=== PATIENT | female | born 1985 | race Two or more races ===

== ENCOUNTER 2016-04-14 21:34 | Emergency (ER) | payer SELFPAY ==
[~2016-04-14] VITALS: Ht 160 cm; Wt 81.6 kg
[~2016-04-14 21:34] MED LIST: ACETAMINOPHEN-1 EAC1 ORAL; AMOXICILLIN500 MG PO; AUGMENTIN 875-1 EAC1 ORAL; AZITHROMYCIN250 MG ORAL; CEPHALEXIN500 MG ORAL; CIPRO500 MG PO; CIPROFLOXACIN500 M2 ORAL; COLACE100 MG ORAL; CORTISPORIN EAR10 ML OTIC; IBUPROFEN600 MG ORAL; IBUPROFEN600 MG PO; IBUPROFEN800 MG ORAL; MACROBID100 MG ORAL; MOTRIN600 MG PO; NAPROXEN375 MG ORAL; NAPROXEN500 M2 ORAL; NKM; NORCO 5-325 TA1 EACH ORAL; NORCO 5-325 TA1 EACH PO; NORCO 5/3251 TAB GT; NORCO 5/3251 TAB ORAL; NORVASC5 MG PO; ONDANSETRON ODT4 MG ORAL; PEPCID40 MG PO; PERCOCET 5-3251 EACH ORAL; PHENAZOPYRIDIN100 MG ORAL; PHENERGAN25 M1 ORAL; PRILOSEC40 MG ORAL; PROMETHAZINE-D118 ML ORAL; PROTONIX40 MG ORAL; PYRIDIUM200 M1 ORAL; TRAMADOL HCL50 MG ORAL; TYLENOL EXTRA500 MG ORAL; ZANTAC150 MG ORAL; ZOFRAN4 M1 ORAL
[2016-04-14 21:43] VITALS: BP 163/99
--- NOTE | 2016-04-14 21:53 | Emergency Room Report ---
History of Present Illness General Chief Complaint: Chest Pain Source: Patient Present Illness HPI Is a 30-year-old female with no significant past medical history. She presents with left upper quadrant abdominal pain/chest pain. Sharp in nature. Onset 2 hours ago. No fever chills. has nausea but no vomiting. Also with headache. Pain is 10 out of 10. No radiation. No diaphoresis. No shortness of breath. No exertional component. His been here for abdominal pain before but no chest pain. Allergies: Coded Allergies: No Known Allergies (Unverified , 12/22/11) Patient History Past Medical History: see triage record, old chart reviewed Past Surgical History: none Pertinent Family History: none Social History: Denies: smoking Now: No Immunizations: other Reviewed Nursing Documentation: PMH: Agreed, PSxH: Agreed Nursing Documentation-PMH Hx Cardiac Problems: No Hx Hypertension: Yes Hx Pacemaker: No Hx Asthma: No Hx COPD: No Hx Diabetes: No Hx Cancer: No Hx Gastrointestinal Problems: No Hx Dialysis: No Hx Neurological Problems: No Hx Cerebrovascular Accident: No Hx Seizures: No Review of Systems Eye: Denies: blurred vision, eye pain ENT: Denies: ear pain, nose congestion, throat swelling Respiratory: Denies: cough, shortness of breath Cardiovascular: Reports: chest pain, Denies: palpitations Gastrointestinal: Reports: abdominal pain, Denies: diarrhea, nausea, vomiting Musculoskeletal: Denies: back pain, joint pain Skin: Denies: rash Neurological: Denies: headache, numbness Endocrine: Denies: increased thirst, increased urine Hematologic/Lymphatic: Denies: easy bruising All Other Systems: negative except mentioned in HPI Physical Exam vitals normal Sp02 EP Interpretation: reviewed, normal General Appearance: well appearing, alert, mild distress - From pain Head: normocephalic, atraumatic Eyes: bilateral eye EOMI, bilateral eye PERRL ENT: hearing grossly normal, normal pharynx Neck: full range of motion, supple, no meningismus Respiratory: chest non-tender, lungs clear, normal breath sounds Cardiovascular #1: regular rate, rhythm, no murmur Gastrointestinal: normal bowel sounds, no mass, no organomegaly, no bruit, non- distended, tenderness - Left upper quadrant Musculoskeletal: back normal, gait/station normal, normal range of motion Neurologic: alert, oriented x3 Psychiatric: mood/affect normal Skin: warm/dry Medical Decision Making Diagnostic Impression: Primary Impression: Chest pain Qualified Codes: R07.9 - Chest pain, unspecified Additional Impressions: Headache Qualified Codes: G44.209 - Tension-type headache, unspecified, not intractable Obesity (BMI 30.0-34.9) ER Course Patient present with atypical chest pain and headache. She's been here multiple time for different pain complaint. No evidence of ACS, PE, dissection to name a few. We'll discharge home. She felt better now. Lab Results Impression labs normal EKG Diagnostic Results Rate: normal Rhythm: NSR ST Segments: no acute changes Rhythm Strip Diag. Results EP Interpretation: yes Rate: 80 Rhythm: NSR, no PVC's, no ectopy Status: improved Disposition: HOME, SELF-CARE Condition: Stable Scripts Naproxen* (NAPROSYN*) 500 Mg Tablet 500 MG ORAL TWICE A DAY, #30 TAB Prov: ISRRAEL JACOME M.D. 04/14/16 Patient Instructions: Nonspecific Chest Pain Additional Instructions: Followup with your DrAaron in 3-5 days. Return if symptom worsen. ISRRAEL JACOME M.D. Apr 14, 2016 21:53
[2016-04-14] MEDS ORDERED: HYDROmorphone 1mg/ml Carpuject IVP ONE (22:00)
[2016-04-14 22:18] LABS: BASOPHILS % (AUTO) 1.1 % (0.0-2.0); EOSINOPHILS % (AUTO) 0.3 % (0.0-3.0); LYMPHOCYTES % (AUTO) 38.8 % (20.0-45.0); MEAN CORPUSCULAR HEMOGLOBIN 29.7 PG (27.0-31.0); MEAN CORPUSCULAR HGB CONC 32.8 G/DL (32.0-36.0); MEAN CORPUSCULAR VOLUME 91 FL (80-99); MEAN PLATELET VOLUME 6.1 FL (6.5-10.1); MONOCYTES % (AUTO) 8.4 % (1.0-10.0); NEUTROPHILS % (AUTO) 51.3 % (45.0-75.0); PLATELET COUNT 328 K/UL (150-450); RED BLOOD COUNT 4.55 M/UL (4.20-5.40); RED CELL DISTRIBUTION WIDTH 11.6 % (11.6-14.8); WHITE BLOOD COUNT 9.3 K/UL (4.8-10.8)
[2016-04-14 22:34] LABS: TROPONIN I < 0.30 ng/mL (<=0.30)
[2016-04-14 22:37] LABS: ALANINE AMINOTRANSFERASE 18 U/L (3-33); ALBUMIN/GLOBULIN RATIO 1.3 (1.0-2.7); ANION GAP 13 (5-15); ASPARTATE AMINO TRANSFERASE 17 U/L (5-40); CALCIUM 9.3 mg/dL (8.6-10.2); CARBON DIOXIDE 26 mEQ/L (20-30); CHLORIDE 99 mEQ/L (98-107); CREATININE 0.7 mg/dL (0.5-0.9); GLOMERULAR FILTRATION RATE > 60 mL/min (>60); HEMOLYSIS 9; LIPASE 26 U/L (< 60); POTASSIUM 3.5 mEQ/L (3.4-4.9); SODIUM 138 mEQ/L (135-145)
[2016-04-14] MEDS ORDERED: NAPROSYN500 M1 ORAL (23:12)
[2016-04-14 23:15] LABS: APPEARANCE,URINE CLEAR; KETONES,URINE NEGATIVE (NEGATIVE); LEUKOCYTE ESTERASE ,URINE 3+ (NEGATIVE); NITRITE,URINE NEGATIVE (NEGATIVE); PH,URINE 6 (4.5-8.0); PROTEIN,URINE 1+ (NEGATIVE); UROBILINOGEN,URINE NORMAL MG/DL (0.0-1.0)
[2016-04-14 23:21] VITALS: BP 155/95
[2016-04-14 23:25] LABS: RBC,URINE 0-2 /HPF (0 - 2); SQUAMOUS EPITHELIAL CELL,UR FEW /LPF (NONE/OCC)
[2016-04-14 23:26] LABS: BACTERIA,URINE FEW /HPF
--- NOTE | 2016-04-17 14:55 | Cardiology Report ---
APPROVED REPORT EKG Measurement Heart [id number] Normal sinus rhythm Normal ECG
== END 2016-04-14 23:21 | disposition home or self-care (01) ==
LOC: EMR 22:15
DX: R07.9 Chest pain, unspecified (principal); G44.209 Tension-type headache, unspecified, not intractable; E66.9 Obesity, unspecified; Z68.31 Body mass index [BMI] 31.0-31.9, adult; I10 Essential (primary) hypertension
CPT/HCPCS: 36415; 80053; 81003; 81025; 83690; 84484; 85025; 93005; 96361; 96374; 96375; 99284; J1170; J2405

== ENCOUNTER 2016-10-25 23:46 | Emergency (ER) | payer SELFPAY ==
[~2016-10-25] VITALS: Ht 157.5 cm; Wt 78.5 kg
[~2016-10-25 23:46] MED LIST changes: +NAPROSYN500 M1 ORAL
[2016-10-26] MEDS ORDERED: NKM (00:19)
[2016-10-26] MEDS ORDERED: DiphenhydrAMINE 50mg/ml Inj IVP ONE (00:30)
[2016-10-26] MEDS ORDERED: Metoclopramide 10mg/2ml Inj IVP ONE (00:30)
[2016-10-26] MEDS ORDERED: Morphine Sulfate 2mg/ml Inj IVP ONE (00:30)
[2016-10-26 02:45] LABS: KETONES,URINE NEGATIVE (NEGATIVE); LEUKOCYTE ESTERASE ,URINE 2+ (NEGATIVE); NITRITE,URINE NEGATIVE (NEGATIVE); PH,URINE 5 (4.5-8.0); PROTEIN,URINE 1+ (NEGATIVE); UROBILINOGEN,URINE NORMAL MG/DL (0.0-1.0)
[2016-10-26 02:50] LABS: APPEARANCE,URINE SLIGHTLY CLOUDY
[2016-10-26 02:51] LABS: BACTERIA,URINE FEW /HPF; RBC,URINE TNTC /HPF (0 - 2); SQUAMOUS EPITHELIAL CELL,UR MANY /LPF (NONE/OCC)
[2016-10-26 02:55] LABS: BASOPHILS % (AUTO) 0.8 % (0.0-2.0); EOSINOPHILS % (AUTO) 1.8 % (0.0-3.0); LYMPHOCYTES % (AUTO) 42.4 % (20.0-45.0); MEAN CORPUSCULAR HEMOGLOBIN 30.3 PG (27.0-31.0); MEAN CORPUSCULAR HGB CONC 33.9 G/DL (32.0-36.0); MEAN CORPUSCULAR VOLUME 89 FL (80-99); MEAN PLATELET VOLUME 6.2 FL (6.5-10.1); MONOCYTES % (AUTO) 5.6 % (1.0-10.0); NEUTROPHILS % (AUTO) 49.4 % (45.0-75.0); PLATELET COUNT 291 K/UL (150-450); RED BLOOD COUNT 3.82 M/UL (4.20-5.40); WHITE BLOOD COUNT 8.4 K/UL (4.8-10.8)
[2016-10-26 03:06] VITALS: BP 119/73
[2016-10-26 03:14] LABS: ALANINE AMINOTRANSFERASE 18 U/L (3-33); ALBUMIN/GLOBULIN RATIO 1.3 (1.0-2.7); ANION GAP 16 (5-15); ASPARTATE AMINO TRANSFERASE 18 U/L (5-40); CALCIUM 8.8 mg/dL (8.6-10.2); CARBON DIOXIDE 25 mEQ/L (20-30); CHLORIDE 98 mEQ/L (98-107); CREATININE 0.7 mg/dL (0.5-0.9); GLOMERULAR FILTRATION RATE > 60 mL/min (>60); HEMOLYSIS 9; LIPASE 30 U/L (< 60); POTASSIUM 3.9 mEQ/L (3.4-4.9); SODIUM 139 mEQ/L (135-145); TOTAL PROTEIN 6.8 g/dL (6.6-8.7)
[2016-10-26] MEDS ORDERED: Ketorolac 30mg Inj IV ONE (03:45)
[2016-10-26] MEDS ORDERED: KEFLEX500 MG ORAL (05:26)
[2016-10-26] MEDS ORDERED: FIORICET1 EA ORAL (05:26)
--- NOTE | 2016-10-26 05:33 | Emergency Room Report ---
History of Present Illness General Chief Complaint: Headache Source: Patient Present Illness HPI 31-year-old female presents to ED complaining of headache x2 days. States pain is 9 at 10, throbbing, nonradiating. Notes photophobia and blurry vision. Denies neck stiffness. Denies fevers or chills. Denies nausea or vomiting. No other aggravating relieving factors. Denies any other associated symptoms Allergies: Coded Allergies: No Known Allergies (Unverified , 12/22/11) Patient History Past Medical History: HTN Past Surgical History: none Pertinent Family History: none Social History: Denies: alcohol use, drug use, smoking Last Menstrual Period: August Now: No Immunizations: UTD Reviewed Nursing Documentation: PMH: Agreed, PSxH: Agreed Nursing Documentation-PMH Hx Cardiac Problems: No Hx Hypertension: Yes Hx Pacemaker: No Hx Asthma: No Hx COPD: No Hx Diabetes: No Hx Cancer: No Hx Gastrointestinal Problems: No Hx Dialysis: No Hx Neurological Problems: No Hx Cerebrovascular Accident: No Hx Seizures: No Review of Systems All Other Systems: negative except mentioned in HPI Physical Exam Vital Signs Date Time Temp Pulse Resp B/P Pulse Ox O2 Delivery O2 Flow Rate FiO2 10/26/16 00:13 98.4 79 16 61/99 98 Room Air Sp02 EP Interpretation: reviewed, normal General Appearance: no apparent distress, alert, GCS 15, non-toxic Head: normocephalic, atraumatic Eyes: bilateral eye PERRL, bilateral eye normal inspection ENT: hearing grossly normal, normal pharynx, no angioedema, normal voice Neck: full range of motion, supple, no meningismus, supple/symm/no masses Respiratory: chest non-tender, lungs clear, normal breath sounds, speaking full sentences Cardiovascular #1: regular rate, rhythm, no edema Cardiovascular #2: 2+ carotid (R), 2+ carotid (L), 2+ radial (R), 2+ radial (L) , 2+ dorsalis pedis (R), 2+ dorsalis pedis (L) Gastrointestinal: normal bowel sounds, non tender, soft, non-distended, no guarding, no rebound Rectal: deferred Genitourinary: normal inspection, no CVA tenderness Musculoskeletal: back normal, gait/station normal, normal range of motion, non- tender Neurologic: alert, oriented x3, responsive, motor strength/tone normal, sensory intact, speech normal Psychiatric: judgement/insight normal, memory normal, mood/affect normal, no suicidal/homicidal ideation Reflexes: 3+ bicep (R), 3+ bicep (L), 3+ tricep (R), 3+ tricep (L), 3+ knee (R) , 3+ knee (L) Skin: normal color, no rash, warm/dry, well hydrated Lymphatic: no adenopathy Medical Decision Making Diagnostic Impression: Primary Impression: Headache Qualified Codes: R51 - Headache Additional Impression: UTI ER Course Hospital Course 31-year-old female presents to ED complaining of headaches,with photophobia, blurry vision Differential diagnoses include: tension headache, migraine, dehydration, intracranial bleed Clinical course Patient placed on stretcher. After initial history and physical I ordered labs , IV fluids, Reglan, Benadryl. Labs reviewed- electrolytes okay, no leukocytosis, hemoglobin/hematocrit stable. UA + bacteria. Urine is positive. Patient states she had an last week CT head unremarkable. On reassessment symptoms are improved i. I feel this is a highly complex case requiring extensive working including EKG/Rhythm strip, Xray/CT/US, Blood/urine lab work, repeat exams while in ED, and administration of strong opiates/narcotics for pain control, admission to hospital or close patient follow up. Diagnosis - headache, UTI stable and discharged to home with Rx Fioricet, Keflex. f/up with PMD. return to ED if symptoms recur/worsen. Labs Test 10/26/16 02:30 10/26/16 02:47 Urine Color Yellow Urine Appearance Slightly cloudy Urine pH 5 (4.5-8.0) Urine Specific [place] 1.025 (1.005-1.035) Urine Protein 1+ (NEGATIVE) Urine Glucose (UA) Negative (NEGATIVE) Urine Ketones Negative (NEGATIVE) Urine Occult Blood 5+ (NEGATIVE) Urine Nitrite Negative (NEGATIVE) Urine Bilirubin Negative (NEGATIVE) Urine Urobilinogen Normal MG/DL (0.0-1.0) Urine Leukocyte Esterase 2+ (NEGATIVE) Urine RBC Tntc /HPF (0 - 2) Urine WBC 5-10 /HPF (0 - 2) Urine Squamous Epithelial Cells Many /LPF (NONE/OCC) Urine Bacteria Few /HPF (NONE) Urine HCG, Qualitative Positive White Blood Count 8.4 K/UL (4.8-10.8) Red Blood Count 3.82 M/UL (4.20-5.40) Hemoglobin 11.6 G/DL (12.0-16.0) Hematocrit 34.2 % (37.0-47.0) Mean Corpuscular Volume 89 FL (80-99) Mean Corpuscular Hemoglobin 30.3 PG (27.0-31.0) Mean Corpuscular Hemoglobin Concent 33.9 G/DL (32.0-36.0) Red Cell Distribution Width 11.0 % (11.6-14.8) Platelet Count 291 K/UL (150-450) Mean Platelet Volume 6.2 FL (6.5-10.1) Neutrophils (%) (Auto) 49.4 % (45.0-75.0) Lymphocytes (%) (Auto) 42.4 % (20.0-45.0) Monocytes (%) (Auto) 5.6 % (1.0-10.0) Eosinophils (%) (Auto) 1.8 % (0.0-3.0) Basophils (%) (Auto) 0.8 % (0.0-2.0) Sodium Level 139 mEQ/L (135-145) Potassium Level 3.9 mEQ/L (3.4-4.9) Chloride Level 98 mEQ/L (98-107) Carbon Dioxide Level 25 mEQ/L (20-30) Anion Gap 16 (5-15) Blood Urea Nitrogen 20 mg/dL (7-23) Creatinine 0.7 mg/dL (0.5-0.9) Estimat Glomerular Filtration Rate > 60 mL/min (>60) Glucose Level 116 mg/dL (74-106) Calcium Level 8.8 mg/dL (8.6-10.2) Total Bilirubin < 0.2 mg/dL (0.0-1.2) Aspartate Amino Transf (AST/SGOT) 18 U/L (5-40) Alanine Aminotransferase (ALT/SGPT) 18 U/L (3-33) Alkaline Phosphatase 57 U/L (35-104) Total Protein 6.8 g/dL (6.6-8.7) Albumin 3.9 g/dL (3.5-5.2) Globulin 2.9 g/dL Albumin/Globulin Ratio 1.3 (1.0-2.7) Lipase 30 U/L (< 60) CT/MRI/US Diagnostic Results CT/MRI/US Diagnostic Results : Imaging Test Ordered: CT Head Impression no acute process Last Vital Signs Date Time Temp Pulse Resp B/P Pulse Ox O2 Delivery O2 Flow Rate FiO2 10/26/16 03:06 98.4 79 16 119/73 98 Room Air Status: improved Disposition: HOME, SELF-CARE Condition: Stable Scripts Cephalexin* (KEFLEX*) 500 Mg Capsule 500 MG ORAL Q6H, #28 CAP 0 Refills Prov: ROSALINDA WHELAN M.D. 10/26/16 Acetamin/Butalbital/Caffeine* (FIORICET*) 1 Ea Tab 1 TAB ORAL Q6H, #15 TAB 0 Refills Prov: ROSALINDA WHELAN M.D. 10/26/16 Referrals: NON PHYSICIAN (PCP) Patient Instructions: Dysuria, Migraine Headache ROSALINDA WHELAN M.D. Oct 26, 2016 05:33
[2016-10-26 05:39] VITALS: BP 122/88
[2016-10-26 05:40] VITALS: BP 122/88
--- NOTE | 2016-10-26 09:59 | Diagnostic Imaging Report ---
Indication: H/A Technique: Continuous helical CT scanning of the head was performed without intravenous contrast material. Axial and coronal 5 mm sections were generated. Radiation dose was minimized using automated exposure control Dose: Total Dose Length Product - DLP thousand 4 at [address] Dose Index - CTDIvol(s) 70.38 mGy. Comparison: 09/25/2010 Findings: The ventricular system is normal in size and configuration. There is no shift of midline structures. No abnormal extra-axial fluid collections are noted. There is no evidence of intracerebral bleeding. No other abnormal high or low density areas are noted within the brain. Intact calvarium. Visualized orbits and sinuses are unremarkable. No significant interim change Impression: Normal CT scan of the head without contrast material. This agrees with the preliminary interpretation provided overnight by [facility]. [place] [facility] [place] the [employer] and the scans are performed using protocols designed to limit radiation exposure to as low as reasonably achievable to attain images of sufficient resolution adequate for diagnostic evaluation.
== END 2016-10-26 05:42 | disposition home or self-care (01) ==
LOC: EMR 10-26 00:30
DX: R51 Headache (principal); N39.0 Urinary tract infection, site not specified; I10 Essential (primary) hypertension
CPT/HCPCS: 36415; 70450; 80053; 81003; 81025; 83690; 85025; 96374; 96375; 99284; J1200; J1885; J2270; J2765

== ENCOUNTER 2016-10-30 18:25 | Emergency (ER) | payer MEDICAID ==
[~2016-10-30] VITALS: Ht 160 cm; Wt 77.1 kg
[~2016-10-30 18:25] MED LIST changes: +FIORICET1 EA ORAL; +KEFLEX500 MG ORAL
[2016-10-30 18:33] VITALS: BP 143/92
--- NOTE | 2016-10-30 19:06 | Emergency Room Report ---
History of Present Illness General Chief Complaint: General Complaint Source: Patient Present Illness HPI 31 YO Female presents to the ED c/o dysuria, x 2 weeks. pt. reports that she was evaluated here two weeks ago for UTI and her symptoms have not improved, pt. reports progression to low back pain bilaterally. denies fevers, reports intermittent chills. pt. reports recent surgical on the 20 of october, denies vaginal d/c other than scant spotting. reports intermittent nausea, denies vomiting.Denies CP, Palpitations, LOC, AMS, dizziness, Changes in Vision , Sensation, paresthesias, or a sudden severe headache. Allergies: Coded Allergies: No Known Allergies (Unverified , 12/22/11) Patient History Past Medical History: see triage record Past Surgical History: none Pertinent Family History: none Last Menstrual Period: 09/05/16 Now: No - TAB 10/20/16 Reviewed Nursing Documentation: PMH: Agreed, PSxH: Agreed Nursing Documentation-PMH Hx Cardiac Problems: No Hx Pacemaker: No Hx Asthma: No Hx COPD: No Hx Diabetes: No Hx Cancer: No Hx Gastrointestinal Problems: No Hx Dialysis: No Hx Neurological Problems: No Hx Cerebrovascular Accident: No Hx Seizures: No Review of Systems All Other Systems: negative except mentioned in HPI Physical Exam Vital Signs Date Time Temp Pulse Resp B/P Pulse Ox O2 Delivery O2 Flow Rate FiO2 10/30/16 18:33 98.4 78 16 143/92 99 Room Air Sp02 EP Interpretation: reviewed, normal General Appearance: no apparent distress, alert, GCS 15, non-toxic Head: normocephalic, atraumatic Eyes: bilateral eye PERRL, bilateral eye normal inspection ENT: hearing grossly normal, normal pharynx, no angioedema, normal voice Neck: full range of motion, supple/symm/no masses Respiratory: lungs clear, normal breath sounds, speaking full sentences Cardiovascular #1: regular rate, rhythm, no edema - no edema noted despite pt. triage cc. Gastrointestinal: normal bowel sounds, non tender, soft, non-distended, no guarding, no rebound, tenderness - midline lower abdomen no adnexal ttp, no RLQ or LLQ tenderness. Rectal: deferred Genitourinary: normal inspection, CVA tenderness (R), CVA tenderness (L) Musculoskeletal: back normal, gait/station normal, normal range of motion, non- tender Neurologic: alert, oriented x3, responsive, motor strength/tone normal, sensory intact, speech normal Psychiatric: judgement/insight normal, memory normal, mood/affect normal Skin: normal color, no rash, warm/dry, well hydrated Medical Decision Making PA Attestation Dr. Alonzo is my supervising Physician whom patient management has been discussed with. Diagnostic Impression: Primary Impression: UTI ER Course Pt. presents to the ED c/o dysuria, x 2 weeks. pt. reports that she was evaluated here two weeks ago for UTI and her symptoms have not improved, pt. reports progression to low back pain bilaterally. denies fevers, reports intermittent chills. pt. reports recent surgical on the 20 of october, denies vaginal d/c other than scant spotting. reports intermittent nausea, denies vomiting. Ddx considered but are not limited to UTi , Pyelo, STI, Stone, Cystitis Vital signs: are WNL, pt. is afebrile H&PE are most consistent with UTI ORDERS: -CBC: unremarkable other than mild anemia -CMP: unremarkable - UA labs are attached: elevated WBC's and leuks, presence of bacteria and no changes since previous UA consistent with residual infection. ED INTERVENTIONS: - Cipro 500mg PO pt. will be d/c with CIPRO po for at home due to clinically having CVA tenderness. pt. will be treated to cover pyelo. DISCHARGE: At this time pt. is stable for d/c to home. Will provide printed patient care instructions, and any necessary prescriptions. Care plan and follow up instructions have been discussed with the patient prior to discharge. Labs Test 10/30/16 18:55 10/30/16 19:16 Urine Color Pale yellow Urine Appearance Slightly cloudy Urine pH 6 (4.5-8.0) Urine Specific [place] 1.020 (1.005-1.035) Urine Protein 1+ (NEGATIVE) Urine Glucose (UA) Negative (NEGATIVE) Urine Ketones Negative (NEGATIVE) Urine Occult Blood 4+ (NEGATIVE) Urine Nitrite Negative (NEGATIVE) Urine Bilirubin Negative (NEGATIVE) Urine Urobilinogen Normal MG/DL (0.0-1.0) Urine Leukocyte Esterase 3+ (NEGATIVE) Urine RBC 5-10 /HPF (0 - 2) Urine WBC 15-20 /HPF (0 - 2) Urine Squamous Epithelial Cells Many /LPF (NONE/OCC) Urine Bacteria Moderate /HPF (NONE) Urine HCG, Qualitative Negative White Blood Count 8.0 K/UL (4.8-10.8) Red Blood Count 3.83 M/UL (4.20-5.40) Hemoglobin 11.8 G/DL (12.0-16.0) Hematocrit 34.6 % (37.0-47.0) Mean Corpuscular Volume 90 FL (80-99) Mean Corpuscular Hemoglobin 30.9 PG (27.0-31.0) Mean Corpuscular Hemoglobin Concent 34.2 G/DL (32.0-36.0) Red Cell Distribution Width 11.8 % (11.6-14.8) Platelet Count 325 K/UL (150-450) Mean Platelet Volume 6.1 FL (6.5-10.1) Neutrophils (%) (Auto) 49.3 % (45.0-75.0) Lymphocytes (%) (Auto) 40.8 % (20.0-45.0) Monocytes (%) (Auto) 6.7 % (1.0-10.0) Eosinophils (%) (Auto) 2.2 % (0.0-3.0) Basophils (%) (Auto) 1.0 % (0.0-2.0) Sodium Level 139 mEQ/L (135-145) Potassium Level 4.3 mEQ/L (3.4-4.9) Chloride Level 102 mEQ/L (98-107) Carbon Dioxide Level 27 mEQ/L (20-30) Anion Gap 10 (5-15) Blood Urea Nitrogen 13 mg/dL (7-23) Creatinine 0.8 mg/dL (0.5-0.9) Estimat Glomerular Filtration Rate > 60 mL/min (>60) Glucose Level 88 mg/dL (74-106) Calcium Level 8.8 mg/dL (8.6-10.2) Last Vital Signs Date Time Temp Pulse Resp B/P Pulse Ox O2 Delivery O2 Flow Rate FiO2 10/30/16 18:33 98.4 78 16 143/92 99 Room Air Disposition: HOME, SELF-CARE Condition: Stable Scripts Tramadol Hcl* (ULTRAM*) 50 Mg Tablet 50 MG ORAL Q8HR Y for For Pain, #9 TAB 0 Refills Prov: Kesha Rossi 10/30/16 Phenazopyridine Hcl* (PYRIDIUM*) 100 Mg Tablet 100 MG ORAL THREE TIMES A DAY for 3 Days, #9 TAB Prov: Kesha Rossi 10/30/16 Ciprofloxacin Hcl* (CIPROFLOXACIN HCL*) 500 Mg Tablet 500 MG ORAL EVERY 12 HOURS for 7 Days, #14 TAB 0 Refills Prov: Kesha Rossi 10/30/16 Referrals: NOT CHOSEN IPA/MD,REFERRING (PCP) Patient Instructions: Urinary Tract Infection Additional Instructions: Take medications as directed. Follow up with a Primary Care Provider in 3-5 days, even if your symptoms have resolved. --Please review list of primary care clinics, if you do not already have a primary care provider Return sooner to ED if new symptoms occur, or current symptoms become worse. Do not drink alcohol, drive, or operate heavy machinery while taking Tramadol as this may cause drowsiness. Pyridium will cause your urine to change color (Red/[place]), this is a normal side effect of the medication. - Please note that this Emergency Department Report was dictated using [employer] consultant technology software, occasionally this can lead to erroneous entry secondary to interpretation by the dictation equipment. Kesha Rossi Oct 30, 2016 19:06
[2016-10-30 19:12] LABS: KETONES,URINE NEGATIVE (NEGATIVE); LEUKOCYTE ESTERASE ,URINE 3+ (NEGATIVE); NITRITE,URINE NEGATIVE (NEGATIVE); PH,URINE 6 (4.5-8.0); PROTEIN,URINE 1+ (NEGATIVE); UROBILINOGEN,URINE NORMAL MG/DL (0.0-1.0)
[2016-10-30] MEDS ORDERED: Norco 7.5mg/325mg tab ORAL ONE (19:15)
[2016-10-30 19:23] LABS: EOSINOPHILS % (AUTO) 2.2 % (0.0-3.0); LYMPHOCYTES % (AUTO) 40.8 % (20.0-45.0); MEAN CORPUSCULAR HEMOGLOBIN 30.9 PG (27.0-31.0); MEAN CORPUSCULAR HGB CONC 34.2 G/DL (32.0-36.0); MEAN CORPUSCULAR VOLUME 90 FL (80-99); MEAN PLATELET VOLUME 6.1 FL (6.5-10.1); MONOCYTES % (AUTO) 6.7 % (1.0-10.0); NEUTROPHILS % (AUTO) 49.3 % (45.0-75.0); PLATELET COUNT 325 K/UL (150-450); RED BLOOD COUNT 3.83 M/UL (4.20-5.40); RED CELL DISTRIBUTION WIDTH 11.8 % (11.6-14.8)
[2016-10-30 19:38] LABS: ANION GAP 10 (5-15); CALCIUM 8.8 mg/dL (8.6-10.2); CARBON DIOXIDE 27 mEQ/L (20-30); CHLORIDE 102 mEQ/L (98-107); CREATININE 0.8 mg/dL (0.5-0.9); GLOMERULAR FILTRATION RATE > 60 mL/min (>60); HEMOLYSIS 5; POTASSIUM 4.3 mEQ/L (3.4-4.9); SODIUM 139 mEQ/L (135-145)
[2016-10-30 19:40] LABS: APPEARANCE,URINE SLIGHTLY CLOUDY
[2016-10-30 19:44] LABS: BACTERIA,URINE MODERATE /HPF; SQUAMOUS EPITHELIAL CELL,UR MANY /LPF (NONE/OCC); WBC,URINE 15-20 /HPF (0 - 2)
[2016-10-30] MEDS ORDERED: TRAMADOL HCL50 MG ORAL (20:10)
[2016-10-30] MEDS ORDERED: CIPROFLOXACIN500 M2 ORAL (20:10)
[2016-10-30] MEDS ORDERED: PHENAZOPYRIDIN100 MG ORAL (20:10)
[2016-10-30] MEDS ORDERED: Phenazopyridine 200mg tab ORAL ONE (20:15)
[2016-10-30] MEDS ORDERED: Ciprofloxacin 500mg tab ORAL ONE (20:15)
[2016-10-30 20:30] VITALS: BP 143/92
== END 2016-10-30 20:31 | disposition home or self-care (01) ==
LOC: EMR 19:05
DX: N39.0 Urinary tract infection, site not specified (principal)
CPT/HCPCS: 36415; 80048; 81003; 81025; 85025; 87086; 99284

== ENCOUNTER 2017-01-18 19:56 | Emergency (ER) | payer MEDICAID ==
[~2017-01-18] VITALS: Ht 160 cm; Wt 82.6 kg
[2017-01-18 20:31] VITALS: BP 138/94
[2017-01-18 20:55] LABS: APPEARANCE,URINE SLIGHTLY CLOUDY; KETONES,URINE 1+ (NEGATIVE); LEUKOCYTE ESTERASE ,URINE 3+ (NEGATIVE); NITRITE,URINE NEGATIVE (NEGATIVE); PH,URINE 6 (4.5-8.0); PROTEIN,URINE 1+ (NEGATIVE); UROBILINOGEN,URINE NORMAL MG/DL (0.0-1.0)
[2017-01-18] MEDS ORDERED: ZOFRAN4 MG ORAL (21:03)
[2017-01-18] MEDS ORDERED: KEFLEX500 MG ORAL (21:03)
[2017-01-18 21:06] LABS: RBC,URINE 15-20 /HPF (0 - 2); WBC,URINE 20-30 /HPF (0 - 2)
[2017-01-18 21:07] LABS: BACTERIA,URINE FEW /HPF; SQUAMOUS EPITHELIAL CELL,UR MODERATE /LPF (NONE/OCC)
[2017-01-18 22:00] VITALS: BP 130/90
[2017-01-18 22:10] VITALS: BP 130/90
--- NOTE | 2017-01-20 15:07 | Emergency Room Report ---
History of Present Illness General Chief Complaint: Female Urogenital Problems Source: Patient Present Illness HPI Patient is a 31-year-old female who presented after increased difficulty with urination. Patient reports having increased burning sensation as well as urinary frequency. Patient reported having prior history of urinary infections. She denies being diabetic. She had not been vomiting. She reported having some nausea. She denied feeling dizzy or lightheaded. She reported having onset of symptoms for one day. Allergies: Coded Allergies: No Known Allergies (Unverified , 12/22/11) Patient History Past Medical History: see triage record Last Menstrual Period: 01/13/17 Now: No Reviewed Nursing Documentation: PMH: Agreed, PSxH: Agreed Nursing Documentation-PMH Past Medical History: No Stated History Hx Cardiac Problems: No Hx Pacemaker: No Hx Asthma: No Hx COPD: No Hx Diabetes: No Hx Cancer: No Hx Gastrointestinal Problems: No Hx Dialysis: No Hx Neurological Problems: No Hx Cerebrovascular Accident: No Hx Seizures: No Review of Systems All Other Systems: negative except mentioned in HPI Physical Exam Vital Signs Date Time Temp Pulse Resp B/P (MAP) Pulse Ox O2 Delivery O2 Flow Rate FiO2 01/18/17 20:12 98.2 78 17 138/94 100 Room Air General Appearance: well appearing, no apparent distress, obese Head: normocephalic, atraumatic ENT: hearing grossly normal, normal voice Neck: full range of motion, supple Respiratory: no respiratory distress, speaking full sentences Cardiovascular #1: normal inspection, no edema Gastrointestinal: normal inspection, soft Musculoskeletal: no calf tenderness Neurologic: normal inspection, alert, oriented x3, normal gait Psychiatric: mood/affect normal Skin: no rash Medical Decision Making Diagnostic Impression: Primary Impression: UTI ER Course Patient presented for dysuria. Differential diagnosis included was not limited to appendicitis, urinary tract infection, pelvic inflammatory disease, urethritis, herpes among others. Urinalysis showed evidence of urinary infection. Patient was given prescription for oral antibiotics as well as nausea medication. Last Vital Signs Date Time Temp Pulse Resp B/P (MAP) Pulse Ox O2 Delivery O2 Flow Rate FiO2 01/18/17 22:10 98.4 78 19 130/90 100 Room Air Status: improved Disposition: HOME, SELF-CARE Condition: Stable Scripts Ondansetron (Zofran) 4 Mg Tablet 4 MG ORAL Q6H Y for Nausea & Vomiting, #30 TAB 0 Refills Prov: Jerman Cain 01/18/17 Cephalexin* (KEFLEX*) 500 Mg Capsule 500 MG ORAL Q6H, #28 CAP 0 Refills Prov: Jerman Cain 01/18/17 Referrals: NON PHYSICIAN (PCP) Patient Instructions: Urinary Tract Infection Jerman Cain Jan 20, 2017 15:07
== END 2017-01-18 22:10 | disposition home or self-care (01) ==
LOC: EMR 20:50
DX: N39.0 Urinary tract infection, site not specified (principal); R39.198 Other difficulties with micturition; R35.0 Frequency of micturition
CPT/HCPCS: 81003; 81025; 87086; 99283

== ENCOUNTER 2017-02-15 22:02 | Emergency (ER) | payer MEDICAID ==
[~2017-02-15] VITALS: Ht 160 cm; Wt 84.4 kg
[~2017-02-15 22:02] MED LIST changes: +ZOFRAN4 MG ORAL
[2017-02-15 22:19] VITALS: BP 151/97
[2017-02-15] MEDS ORDERED: Metoclopramide 10mg/2ml Inj IM ONE (22:30)
[2017-02-15] MEDS ORDERED: Ketorolac 60mg Inj IM ONE (22:30)
[2017-02-15] MEDS ORDERED: REGLAN10 MG ORAL (23:02)
[2017-02-15 23:05] VITALS: BP 151/97
--- NOTE | 2017-02-15 23:12 | Emergency Room Report ---
History of Present Illness General Chief Complaint: Headache Source: Patient Present Illness HPI 31YOF with 3 days right sided headache. Assoc with nausea, light aversion Took 2 motrin earlier History of headaches, maybe migraines, but no formal diagnosis No neck pain/stiffness, fever/chills, sick contacts Was here before recently for similar, CT head negative Allergies: Coded Allergies: No Known Allergies (Unverified , 12/22/11) Patient History Past Medical History: none Past Surgical History: none Pertinent Family History: none Social History: Denies: smoking, alcohol use, drug use Last Menstrual Period: "on period" Now: No : 5 Immunizations: UTD Reviewed Nursing Documentation: PMH: Agreed, PSxH: Agreed Nursing Documentation-PMH Past Medical History: No Stated History Hx Cardiac Problems: No Hx Pacemaker: No Hx Asthma: No Hx COPD: No Hx Diabetes: No Hx Cancer: No Hx Gastrointestinal Problems: No Hx Dialysis: No Hx Neurological Problems: No Hx Cerebrovascular Accident: No Hx Seizures: No Review of Systems All Other Systems: negative except mentioned in HPI Physical Exam Vital Signs Date Time Temp Pulse Resp B/P (MAP) Pulse Ox O2 Delivery O2 Flow Rate FiO2 02/15/17 22:13 97.9 93 18 151/97 100 Room Air Sp02 EP Interpretation: reviewed, normal General Appearance: normal inspection, well appearing, no apparent distress, alert, GCS 15, non-toxic Head: normocephalic, atraumatic Eyes: bilateral eye PERRL, bilateral eye EOMI ENT: normal ENT inspection, hearing grossly normal, normal voice Neck: normal inspection, full range of motion, supple, no bony tend Respiratory: normal inspection, lungs clear, normal breath sounds, no respiratory distress, no retraction, no wheezing Cardiovascular #1: regular rate, rhythm, no edema Gastrointestinal: normal inspection, normal bowel sounds, non tender, soft, no guarding, no hernia Genitourinary: no CVA tenderness Musculoskeletal: normal inspection, back normal, normal range of motion, Ursula' s Sign negative Neurologic: normal inspection, alert, oriented x3, responsive, multifocal lens assembler III-XII nml as tested, speech normal Psychiatric: normal inspection, judgement/insight normal, mood/affect normal Skin: normal inspection, normal color, no rash Medical Decision Making Diagnostic Impression: Primary Impression: Headache Qualified Codes: G44.209 - Tension-type headache, unspecified, not intractable ER Course Tension vs migraine headache VSS. Afebrile No focal neuro deficits Unlilely SAH or meningitis given 3 days, no focal deficits, well appearance Reassured by recent normal CT head Analgesia, anti-emetic given with resolution Rx Reglan to take with motrin she has at home PMD referral for Neuro Last Vital Signs Date Time Temp Pulse Resp B/P (MAP) Pulse Ox O2 Delivery O2 Flow Rate FiO2 02/15/17 23:05 97.9 93 18 151/97 100 Room Air Status: improved Disposition: HOME, SELF-CARE Condition: Improved Scripts Metoclopramide Hcl* (REGLAN*) 10 Mg Tablet 10 MG ORAL BID for 7 Days, #14 TAB Prov: KRISHAN REESE M.D. 02/15/17 Referrals: NON PHYSICIAN (PCP) Patient Instructions: Tension Headache, Migraine Headache Additional Instructions: - For recurrent headache, take reglan with motrin up to 2x a day - Follow up with doctor for neurology referral to evaluate you for migraines KRISHAN REESE M.D. Feb 15, 2017 23:12
== END 2017-02-15 23:06 | disposition home or self-care (01) ==
LOC: EMR 22:34
DX: R51 Headache (principal)
CPT/HCPCS: 96372; 99284; J2765

== ENCOUNTER 2017-05-08 09:48 | Emergency (ER) | payer MEDICAID ==
[~2017-05-08] VITALS: Ht 160 cm; Wt 77.1 kg
[~2017-05-08 09:48] MED LIST changes: +REGLAN10 MG ORAL
[2017-05-08 09:59] VITALS: BP 148/92
[2017-05-08 10:53] LABS: APPEARANCE,URINE SLIGHTLY CLOUDY; BILIRUBIN, URINE NEGATIVE (NEGATIVE); COLOR,URINE PALE YELLOW; GLUCOSE, URINE (UA) NEGATIVE (NEGATIVE); KETONES,URINE NEGATIVE (NEGATIVE); LEUKOCYTE ESTERASE ,URINE 3+ (NEGATIVE); NITRITE,URINE NEGATIVE (NEGATIVE); PH,URINE 6 (4.5-8.0); PROTEIN,URINE 2+ (NEGATIVE); UROBILINOGEN,URINE NORMAL MG/DL (0.0-1.0)
[2017-05-08] MEDS ORDERED: NITROFURANTOIN100 M2 ORAL (11:05)
[2017-05-08] MEDS ORDERED: PHENAZOPYRIDIN200 MG ORAL (11:05)
[2017-05-08 11:08] VITALS: BP 148/92
--- NOTE | 2017-05-08 11:08 | Emergency Room Report ---
History of Present Illness General Chief Complaint: General Complaint Source: Patient, Medical Record Present Illness HPI 31-year-old female yo F no sig pmhx p/w dysuria. +dysuria, frequency, urgency. No hematuria. + Abdominal pain points to the suprapubic region. No flank pain. No fever no chills Monogamous with 1 partner No hx of STDs. Denies abnormal vaginal discharge or bleeding. Allergies: Coded Allergies: No Known Allergies (Unverified , 12/22/11) Patient History Past Medical History: see triage record Past Surgical History: none Pertinent Family History: none Last Menstrual Period: 04/08/18 Reviewed Nursing Documentation: PMH: Agreed, PSxH: Agreed Nursing Documentation-PMH Past Medical History: No History, Except For Hx Cardiac Problems: No Hx Pacemaker: No Hx Asthma: No Hx COPD: No Hx Diabetes: No Hx Cancer: No Hx Gastrointestinal Problems: No Hx Dialysis: No Hx Neurological Problems: No Hx Cerebrovascular Accident: No Hx Seizures: No Review of Systems All Other Systems: negative except mentioned in HPI Physical Exam Vital Signs Date Time Temp Pulse Resp B/P (MAP) Pulse Ox O2 Delivery O2 Flow Rate FiO2 05/08/17 09:52 97.7 91 18 148/92 99 Room Air Sp02 EP Interpretation: reviewed, normal General Appearance: alert, GCS 15, non-toxic, mild distress Head: normocephalic, atraumatic Eyes: bilateral eye normal inspection, bilateral eye PERRL, bilateral eye EOMI ENT: normal ENT inspection, normal pharynx, normal voice, moist mucus membranes Neck: normal inspection, full range of motion, supple Respiratory: normal inspection, lungs clear, normal breath sounds, no respiratory distress, no retraction, no wheezing, speaking full sentences, chest symmetrical Cardiovascular #1: normal inspection, regular rate, rhythm, no edema, normal capillary refill Cardiovascular #2: 2+ radial (R), 2+ radial (L) Gastrointestinal: other - suprapubic tenderness no guarding no rigidity Genitourinary: no CVA tenderness Musculoskeletal: normal inspection, back normal, normal range of motion, non- tender Neurologic: normal inspection, alert, oriented x3, responsive, motor strength/ tone normal, sensory intact, normal gait, speech normal Psychiatric: normal inspection, judgement/insight normal, memory normal Skin: normal inspection, normal color, no rash, warm/dry, well hydrated, normal turgor Medical Decision Making Diagnostic Impression: Primary Impression: UTI (urinary tract infection) ER Course 31-year-old female with dysuria DDX: UTI / cystitis vs. pyelo vs STD Plan: UA, UCX ER course: Pt remains stable/nontoxic appearing in ED. UA positive Disposition: Patient will be discharged home with prescription of antibiotics. Strict return precautions to discussed with patient such as high fever, chills, abdominal pain, nausea or vomiting. Patient verbalized understanding. Patient instructed to follow up with primary care doctor within 3 days. Patient agrees with plan. Please note that this Emergency Department Report was dictated using GRIDregistered art therapist technology software, occasionally this can lead to erroneous entry secondary to interpretation by the dictation equipment Last Vital Signs Date Time Temp Pulse Resp B/P (MAP) Pulse Ox O2 Delivery O2 Flow Rate FiO2 05/08/17 09:59 97.7 91 18 148/92 99 Room Air Disposition: HOME, SELF-CARE Condition: Improved Scripts Phenazopyridine Hcl* (PYRIDIUM*) 200 Mg Tablet 200 MG ORAL THREE TIMES A DAY, #14 TAB 0 Refills Prov: Josi Mckeon M.D. 05/08/17 Nitrofurantoin Monohyd/M-Cryst* (MACROBID 100 MG*) 100 Mg Capsule 100 MG ORAL EVERY 12 HOURS for 7 Days, #14 CAP 0 Refills Prov: Josi Mckeon M.D. 05/08/17 Patient Instructions: Urinary Tract Infection, [id number] Josi Mckeon M.D. May 08, 2017 11:08
== END 2017-05-08 11:33 | disposition home or self-care (01) ==
LOC: EMR 10:54
DX: N39.0 Urinary tract infection, site not specified (principal)
CPT/HCPCS: 81003; 81025; 87086; 87181; 99283

== ENCOUNTER 2017-11-02 21:25 | Emergency (ER) | payer SELFPAY ==
[~2017-11-02] VITALS: Ht 160 cm; Wt 74.8 kg
[~2017-11-02 21:25] MED LIST changes: +HYDROCHLOROTHIA25 MG ORAL; +NITROFURANTOIN100 M2 ORAL; +PHENAZOPYRIDIN200 MG ORAL
[2017-11-02] MEDS ORDERED: ZyPREXA Zydis 10mg tab ORAL ONE (21:45)
--- NOTE | 2017-11-02 21:46 | Emergency Room Report ---
History of Present Illness General Chief Complaint: Chest Pain Source: Patient, Medical Record Present Illness HPI Patient is a 32-year-old female who presented after increased headache as well as chest discomfort. Patient had multiple visits for similar type symptoms. She reports having gradual onset of symptoms. She reports having prior history of hypertension. She denies any vomiting. She reports having some chest tightness. She's had previous workup which was negative. Allergies: Coded Allergies: No Known Allergies (Unverified , 12/22/11) Patient History Past Medical History: see triage record Last Menstrual Period: on period Reviewed Nursing Documentation: PMH: Agreed; PSxH: Agreed Nursing Documentation-PMH Hx Cardiac Problems: No Hx Pacemaker: No Hx Asthma: No Hx COPD: No Hx Diabetes: No Hx Cancer: No Hx Gastrointestinal Problems: No Hx Dialysis: No Hx Neurological Problems: No Hx Cerebrovascular Accident: No Hx Seizures: No Review of Systems All Other Systems: negative except mentioned in HPI Physical Exam Vital Signs Date Time Temp Pulse Resp B/P (MAP) Pulse Ox O2 Delivery O2 Flow Rate FiO2 11/02/17 21:27 99.1 91 18 163/111 98 Room Air 99.1 Sp02 EP Interpretation: reviewed, normal General Appearance: normal inspection, well appearing, no apparent distress, alert, GCS 15, obese Head: atraumatic ENT: normal ENT inspection, hearing grossly normal, normal voice Neck: normal inspection, full range of motion, supple, no bony tend Respiratory: normal inspection, lungs clear, normal breath sounds, no respiratory distress, no retraction, no wheezing Cardiovascular #1: regular rate, rhythm, no edema Gastrointestinal: normal inspection, normal bowel sounds, non tender, soft, no guarding, no hernia Genitourinary: no CVA tenderness Musculoskeletal: normal inspection, back normal, normal range of motion Neurologic: normal inspection, alert, responsive, speech normal Psychiatric: normal inspection, judgement/insight normal, mood/affect normal Skin: normal inspection, normal color, no rash Medical Decision Making Diagnostic Impression: Primary Impression: Headache ER Course Patient presented for headache. Differential diagnoses included but was not limited to skull fracture, subarachnoid hemorrhage, meningitis, aneurysm, mass lesion, intracranial hemorrhage. Patient has a benign exam and does not appear to require any further imaging or laboratory testing at this time. Patient was noted to have previous history of multiple prior visits for similar symptoms and had previous imaging. The patient is given medications for symptomatically treatment. Patient was noted to have improvement after medications.The patient is advised to follow up with primary care doctor in 1-2 days. Patient is advised to return if any worsening condition or if any changes in status that are concerning. This report is dictated with Rollstream importer exporter software which may occasionally lead to discrepancies related to use of this software. Last Vital Signs Date Time Temp Pulse Resp B/P (MAP) Pulse Ox O2 Delivery O2 Flow Rate FiO2 11/02/17 21:27 99.1 91 18 163/111 98 Room Air 99.1 Status: improved Disposition: HOME, SELF-CARE Condition: Stable Scripts Acetamin/Butalbital/Caffeine* (FIORICET*) 1 Ea Tab 1 TAB ORAL Q6H, #15 TAB 0 Refills Prov: Jerman Cain MD 11/02/17 Jerman Cain MD Nov 02, 2017 21:46
[2017-11-02 22:42] VITALS: BP 131/84
[2017-11-02] MEDS ORDERED: Metoclopramide 10mg/2ml Inj IM ONE (23:00)
[2017-11-02] MEDS ORDERED: FIORICET1 EA ORAL (23:09)
[2017-11-02 23:34] VITALS: BP 138/96
[2017-11-02 23:35] VITALS: BP 138/96
--- NOTE | 2017-11-03 12:15 | Cardiology Report ---
APPROVED REPORT EKG Measurement Heart [id number] Normal sinus rhythm Normal ECG
== END 2017-11-02 23:35 | disposition home or self-care (01) ==
LOC: EMR 21:50
DX: R51 Headache (principal)
CPT/HCPCS: 93005; 96372; 99283; J2765

== ENCOUNTER 2018-05-28 13:52 | Emergency (ER) | payer MEDICAID, OTHER ==
[~2018-05-28] VITALS: Ht 160 cm; Wt 81.6 kg
[~2018-05-28 13:52] MED LIST changes: +LIDODERM700 M1 TOPIC
--- NOTE | 2018-05-28 14:25 | NUR ---
ED Nurse Note: PT WALKED IN TO ER TODAY FROM HOME. AOX4. PT C/O ABDOMINAL PAIN, 01/17 X 2 DAYS AGO ACCOMPANIED BY NAUSEA AND VOMITING, LAST EPISODE X THIS AM. PT DENIES DIARRHEA. ACTIVE BOWEL SOUNDS IN ALL QUADRANTS. ABDOMEN NONDISENDED AND NONTENDER TO PALPATION. LAST BM X LAST NIGHT WHICH PT STATES WAS FORMED. Addendum: 05/28/18 at 1428 by MIMI ED Nurse Note: PT ALSO C/O BURNING SENSATION WHILE URINATING X 2 DAYS AGO. PT DENIES INCREASE IN URINARY FREQUENCY OR URGE.
[2018-05-28 14:26] VITALS: BP 128/86
[2018-05-28 14:37] LABS: APPEARANCE,URINE SLIGHTLY CLOUDY; BILIRUBIN, URINE NEGATIVE (NEGATIVE); COLOR,URINE PALE YELLOW; GLUCOSE, URINE (UA) NEGATIVE (NEGATIVE); KETONES,URINE NEGATIVE (NEGATIVE); LEUKOCYTE ESTERASE ,URINE 3+ (NEGATIVE); NITRITE,URINE NEGATIVE (NEGATIVE); PH,URINE 5 (4.5-8.0); PROTEIN,URINE NEGATIVE (NEGATIVE); UROBILINOGEN,URINE NORMAL MG/DL (0.0-1.0)
--- NOTE | 2018-05-28 15:17 | NUR ---
ED Nurse Note: US CALLED. PER PHARMACY INFORMATICS MANAGER, WILL TAKE ANOTHER 25-30 MINUTES.
--- NOTE | 2018-05-28 15:40 | NUR ---
ED Nurse Note: PT TO US VIA WHEELCHAIR
[2018-05-28] MEDS ORDERED: Ketorolac 30mg Inj IM ONE (15:45)
--- NOTE | 2018-05-28 16:18 | Emergency Room Report ---
History of Present Illness General Chief Complaint: Abdominal Pain Source: Patient Present Illness HPI 32-year-old female patient presents the ER complaining of suprapubic pain and dysuria for the past 2 days. Denies hematuria. Denies foul-smelling odor or pelvic rash. Denies acute injury or trauma. Denies diarrhea. Denies constipation. Also reports vomiting during this time, states he was able to tolerate p.o. fluids since last episode of vomiting. Denies hematemesis. Denies fever, chest pain no shortness of breath. Denies history of diabetes. Reports in a sexual monogamous relationship, denies concern for STI, reports light vaginal discharge, denies itchiness. Also complains of low back pain. States is been present for several days, History of similar symptoms in the past. Denies bowel bladder incontinence. Denies history of kidney stones. Denies acute injury or trauma. Allergies: Coded Allergies: No Known Allergies (Unverified , 12/22/11) Patient History Past Medical History: see triage record Last Menstrual Period: 05/01/18 Now: No Reviewed Nursing Documentation: PMH: Agreed; PSxH: Agreed Nursing Documentation-PMH Past Medical History: No History, Except For Hx Cardiac Problems: Yes Hx Hypertension: Yes Hx Pacemaker: No Hx Asthma: No Hx COPD: No Hx Diabetes: No Hx Cancer: No Hx Gastrointestinal Problems: No Hx Dialysis: No Hx Neurological Problems: No Hx Cerebrovascular Accident: No Hx Seizures: No Review of Systems All Other Systems: negative except mentioned in HPI Physical Exam Vital Signs Date Time Temp Pulse Resp B/P (MAP) Pulse Ox O2 Delivery O2 Flow Rate FiO2 05/28/18 14:13 99.0 83 20 131/91 97 Room Air Sp02 EP Interpretation: reviewed, normal General Appearance: well appearing, no apparent distress, alert, GCS 15, non- toxic Head: normocephalic, atraumatic Eyes: bilateral eye normal inspection, bilateral eye PERRL ENT: hearing grossly normal, normal pharynx, no angioedema, normal voice, uvula midline, moist mucus membranes Neck: full range of motion Respiratory: lungs clear, normal breath sounds, no rhonchi, no respiratory distress, no accessory muscle use, no wheezing, speaking full sentences Cardiovascular #1: regular rate, rhythm, no edema Gastrointestinal: soft, no mass, non-distended, no guarding, no rebound, tenderness - Suprapubic, other - Negative Shell, negative obturator, no right lower quadrant tenderness Genitourinary: no CVA tenderness Musculoskeletal: back normal, digits/nails normal, gait/station normal, normal range of motion, non-tender Neurologic: alert, oriented x3, responsive, motor strength/tone normal, sensory intact Psychiatric: mood/affect normal Medical Decision Making PA Attestation Dr. Haas is my supervising Physician whom patient management has been discussed with. Diagnostic Impression: Primary Impression: Abdominal pain Additional Impressions: UTI (urinary tract infection) Lumbago ER Course Pt presents to ED c/o urinary symptoms and suprapubic pain. DDX considered but are not limited to cystitis, pyelonephritis, STI, vaginitis, , BV, yeast infection torsion, strain, sprain, nephrolithiasis, acute dependence. No abdominal TTP, negative obturator, negative Shell, negative Rovsing, low suspicion for cholecystitis or appendicitis, does not require imaging or labs at this time. Denies bowel or bladder incontinence, no acute injury or trauma, does not require imaging at this time, low suspicion for cauda equina. Patient not writhing in pain, no flank pain, no blood in urine, low suspicion for kidney stones at this time. VITAL SIGNS are WNL, patient is afebrile. Ordered UA, and ultrasound. ER COURSE Provided with pain medication. Normal skin turgor, cap refill less than 2 seconds, moist mucous members, low suspicion for dehydration, does not require IV fluids at this time. UA results show WBCs and elevated leukocyte esterase, patient symptomatic, indicate UTI, will treat with abx. Pelvic ultrasound negative for acute disease, no ovarian torsion. If concern for STI, followup with STI clinic for testing and treatment. Denies STI concern. Patient seen here previously for similar symptoms in the past. CT abdomen on file, \\do not believe patient requires labs or repeat CT at this time. Previously noted to have possible opiate tolerance and dependence, do not believe patient requires opiate medication at this time. Low back pain symptoms likely muscular in nature. Will provide patient with muscle relaxant. Advised patient on rest ice and heat. ER precautions given. DISCHARGE -Rx provided for Keflex -Rx provided for Phenazopyridine for pain. -Rx provided for Robaxin Patient is stable for discharge. Patient resting comfortably, in no acute distress, nontoxic appearing, talking without difficulty. Will provide with patient care instructions and any necessary prescriptions. Patient understands and agrees to treatment plan. Patient encouraged to drink plenty of fluids. Patient to take medication as instructed. Care plan and follow-up instructions provided. Patient questions asked and answered. Reports understanding and agreement to treatment plan. Patient instructed to follow-up with primary care provider in 3 - 5 days. ER precautions given. Patient instructed to return to ER immediately for any new or worsening of symptoms. Including but not limited to fever, abdominal pain , intractable vomiting. - Please note that this Emergency Department Report was dictated using Boatboundnurse sexual assault technology software, occasionally this can lead to erroneous entry secondary to interpretation by the dictation equipment. Labs Test 05/28/18 14:20 Urine Color Pale yellow Urine Appearance Slightly cloudy Urine pH 5 (4.5-8.0) Urine Specific [place] 1.020 (1.005-1.035) Urine Protein Negative (NEGATIVE) Urine Glucose (UA) Negative (NEGATIVE) Urine Ketones Negative (NEGATIVE) Urine Blood 1+ (NEGATIVE) Urine Nitrite Negative (NEGATIVE) Urine Bilirubin Negative (NEGATIVE) Urine Urobilinogen Normal MG/DL (0.0-1.0) Urine Leukocyte Esterase 3+ (NEGATIVE) Urine RBC 5-10 /HPF (0 - 2) Urine WBC 2-4 /HPF (0 - 2) Urine Squamous Epithelial Cells Many /LPF (NONE/OCC) Urine Bacteria Few /HPF (NONE) Urine HCG, Qualitative Negative (NEGATIVE) CT/MRI/US Diagnostic Results CT/MRI/US Diagnostic Results : Imaging Test Ordered: Pelvic US Impression Intrauterine device demonstrated. Negative pelvic ultrasound. Last Vital Signs Date Time Temp Pulse Resp B/P (MAP) Pulse Ox O2 Delivery O2 Flow Rate FiO2 05/28/18 14:26 76 18 Room Air 05/28/18 14:26 98.8 128/86 98 Status: improved Disposition: HOME, SELF-CARE Condition: Stable Scripts Methocarbamol* (ROBAXIN*) 500 Mg Tablet 500 MG PO TID, #21 TAB 0 Refills Prov: Grant Potter P.A. 05/28/18 Phenazopyridine Hcl* (PYRIDIUM*) 100 Mg Tablet 100 MG ORAL THREE TIMES A DAY, #15 TAB Prov: Grant Potter P.A. 05/28/18 Cephalexin* (KEFLEX*) 500 Mg Capsule 500 MG ORAL EVERY 12 HOURS, #14 CAP 0 Refills Prov: Grant Potter 05/28/18 Referrals: NOT CHOSEN IPA/MD,REFERRING (PCP) Patient Instructions: Abdominal Pain, Adult, Urinary Tract Infection, Easy-to- Read Additional Instructions: Followup with primary care provider and followup with and./or OBGYN. Drink plenty of fluids. Take medications as directed. Pyridium has SE of turning urine orange. Patient questions asked and answered. ER precautions given, patient instructed to return to ER immediately for any new or worsening of symptoms. Grant Potter May 28, 2018 16:18
--- NOTE | 2018-05-28 16:24 | NUR ---
ED Nurse Note: PT BACK FROM US VIA WHEELCHAIR.
[2018-05-28] MEDS ORDERED: CEPHALEXIN500 MG ORAL (16:32)
[2018-05-28] MEDS ORDERED: PHENAZOPYRIDIN100 MG ORAL (16:32)
[2018-05-28] MEDS ORDERED: ROBAXIN500 MG PO (16:33)
[2018-05-28 16:39] VITALS: BP 124/82
--- NOTE | 2018-05-28 16:40 | NUR ---
ED Nurse Note: PT LAYING PEACEFULLY IN BED IN NAD. AOX4. PRESCRIPTIONS AND DISCHARGE PAPERWORK EXPLAINED TO PT. PT VERBALIZES UNDERSTANDING AND ALL QUESTIONS ANSWERED. PRESCRIPTIONS AND DISCHARGE PAPERWORK GIVEN TO PT AND ID WRISTBAND REMOVED. PT WALKED OUT OF ER WITH STEADY GAIT AND ALL BELONGINGS.
--- NOTE | 2018-05-28 17:12 | Diagnostic Imaging Report ---
Indication:Lower abdominal and pelvic pain. test negative Technique: Grayscale and duplex Doppler imaging of the pelvis performed utilizing a transabdominal and endovaginal scan. Comparison: None Findings: The size, contour, and configuration of the uterus is within normal limits. The endometrium is uniformly echogenic and normal in thickness. Intrauterine device demonstrated. Endometrium measures 13 mm and is uniformly echogenic. Cervical nabothian cysts are noted. The ovaries appear normal bilaterally with good dopplerable blood flow. There is no significant free fluid identified. Right ovary 3 x 2.5 x 1.9 cm. Left ovary 2.9 x 3 x 1.5 cm. IMPRESSION: Intrauterine device demonstrated. Negative pelvic ultrasound.
== END 2018-05-28 16:40 | disposition home or self-care (01) ==
LOC: EMR 14:46
DX: N39.0 Urinary tract infection, site not specified (principal); M54.5 Low back pain; R10.9 Unspecified abdominal pain; I10 Essential (primary) hypertension
CPT/HCPCS: 76830; 76856; 81003; 81025; 96372; 99284; J1885

== ENCOUNTER 2018-10-16 10:33 | Emergency (ER) | payer SELFPAY ==
[~2018-10-16] VITALS: Ht 157.5 cm; Wt 68.0 kg
[~2018-10-16 10:33] MED LIST changes: +ROBAXIN500 MG PO
--- NOTE | 2018-10-16 10:47 | NUR ---
ED Nurse Note: PT WALKED IN TO ER TODAY FROM HOME. AOX4. PT C/O NONRADIATING LEFT SIDED CHEST PAIN AND HEADACHE, PAIN 10/10 X LAST NIGHT. PT ALSO SOME DIZZINESS BUT DENIES NAUSEA OR VOMITING. GAIT STEADY IN ER. AT BEDSIDE, NSR ON SOLUTIONS MANAGER AND BP 165/110. PT STATES SHE HAS HX OF HTN AND TOOK HER MEDS THIS MORNING AROUND 0700. PT DOES NOT KNOW THE NAME OF THE MED.
[2018-10-16 10:49] VITALS: BP 165/110
[2018-10-16] MEDS ORDERED: Ketorolac 30mg Inj ONE (10:59)
[2018-10-16] MEDS ORDERED: DiphenhydrAMINE 50mg/ml Inj ONE (11:00)
[2018-10-16] MEDS ORDERED: Metoclopramide 10mg/2ml Inj ONE (11:00)
[2018-10-16] MEDS ORDERED: Ketorolac 30mg Inj IV ONE (11:00)
[2018-10-16] MEDS ORDERED: Metoclopramide 10mg/2ml Inj IVP ONE (11:00)
[2018-10-16] MEDS ORDERED: DiphenhydrAMINE 50mg/ml Inj IVP ONE (11:00)
--- NOTE | 2018-10-16 11:04 | NUR ---
ED Nurse Note: PYXIS NOT SYNCING WITH MEDICATION ORDERS. ALL MEDICATIONS PULLED FROM PYXIS VIA OVERRIDE. BENADRYL 50MG PULLED FROM PYXIS AND 25MG ADMINISTERED IVP. BENADRYL 25MG WASTED, WITNESSED BY DEBORAH CHARGE NURSE. PYXIS NOT PROMPTING WASTE.
--- NOTE | 2018-10-16 11:05 | NUR ---
ED Nurse Note: NOTIFIED PHARMACIST OF PYXIS NOT PROMPTING WASTE. PHARMACIST STATES SHE DOES NOT KNOW WHAT TO DO AND TO SPEAK WITH THE CHARGE NURSE. DEBORAH, CHARGE NURSE ALREADY AWARE.
--- NOTE | 2018-10-16 11:07 | NUR ---
ED Nurse Note: PT TO CT VIA BARB.
--- NOTE | 2018-10-16 11:30 | NUR ---
ED Nurse Note: PT BACK FROM CT VIA BARB.
--- NOTE | 2018-10-16 11:33 | Diagnostic Imaging Report ---
Indications: Headache Technique: Spiral acquisitions obtained through the brain. Angled axial and coronal 5 x 5 mm slices were reconstructed. Total dose length product 1319.78 mGycm. CTDI vol(s) 70.38 mGy. Dose reduction achieved using automated exposure control Comparison: 08/08/2017 Findings: No acute intracranial hemorrhage nor edema, mass effect, nor midline shift. Normal ponce-white differentiation. Normal-sized ventricles and extra-axial CSF spaces. Intact calvarium. Mastoids are clear. Visualized orbits and sinuses are unremarkable. No significant interim change Impression: Negative The CT scanner at [facility] is accredited by the [employer] and the scans are performed using protocols designed to limit radiation exposure to as low as reasonably achievable to attain images of sufficient resolution adequate for diagnostic evaluation.
--- NOTE | 2018-10-16 11:40 | NUR ---
ED Nurse Note: XRAY AT BEDSIDE.
[2018-10-16] MEDS ORDERED: METOPROLOL SUC100 MG ORAL (12:15)
[2018-10-16] MEDS ORDERED: NORCO 5-325 TA1 EACH ORAL (12:16)
[2018-10-16] MEDS ORDERED: IBUPROFEN600 MG ORAL (12:16)
--- NOTE | 2018-10-16 12:22 | NUR ---
ED Nurse Note: PT LAYING PEACEFULLY IN BED IN NAD. AOX4. PRESCRIPTIONS AND DISCHARGE PAPERWORK EXPLAINED TO PT. PT VERBALIZES UNDERSTANDING AND ALL QUESTIONS ANSWERED. PRESCRIPTIONS AND DISCHARGE PAPERWORK GIVEN TO PT, IV AND ID WRISTBAND REMOVED. PT WALKED OUT OF ER WITH STEADY GAIT AND ALL BELONGINGS.
[2018-10-16 12:23] VITALS: BP 156/98
--- NOTE | 2018-10-16 16:08 | Emergency Room Report ---
History of Present Illness General Chief Complaint: Chest Pain Source: Patient Present Illness HPI Patient presents emergency department today complaint of chest pain. Patient states that she has been feeling well she developed chest discomfort radiating to her neck and then into her head. She complains of a headache as well. Patient has had episodes of this in the past. She states that she has some abnormality in the brain that was noted on the MRI performed at [facility]. She is unsure exactly what the abnormality is. She denies any fever. Patient does complain nausea but denies any vomiting. No other complaints are noted. Symptoms noted to be severe. No other modifying factors. No other associated signs and symptoms. No other complaints were noted. Allergies: Coded Allergies: No Known Allergies (Unverified , 12/22/11) Patient History Past Medical History: HTN, CAD Past Surgical History: none Pertinent Family History: none Social History: Denies: smoking, alcohol use, drug use Last Menstrual Period: 09/29/2018 Now: No Reviewed Nursing Documentation: PMH: Agreed; PSxH: Agreed Nursing Documentation-PMH Past Medical History: No History, Except For Hx Cardiac Problems: Yes Hx Hypertension: Yes Hx Pacemaker: No Hx Asthma: No Hx COPD: No Hx Diabetes: No Hx Cancer: No Hx Gastrointestinal Problems: No Hx Dialysis: No Hx Neurological Problems: No Hx Cerebrovascular Accident: No Hx Seizures: No Review of Systems All Other Systems: negative except mentioned in HPI Physical Exam Vital Signs Date Time Temp Pulse Resp B/P (MAP) Pulse Ox O2 Delivery O2 Flow Rate FiO2 10/16/18 10:40 97.9 80 20 158/98 (118) 95 Room Air Sp02 EP Interpretation: reviewed, normal General Appearance: alert, moderate distress Head: atraumatic Eyes: bilateral eye normal inspection ENT: normal ENT inspection, hearing grossly normal, normal voice Neck: normal inspection, full range of motion, supple, no bony tend Respiratory: normal inspection, lungs clear, normal breath sounds, no respiratory distress, no retraction, no wheezing Cardiovascular #1: regular rate, rhythm, no edema Gastrointestinal: normal inspection, normal bowel sounds, non tender, soft, no guarding, no hernia Genitourinary: no CVA tenderness Musculoskeletal: normal inspection, back normal, normal range of motion Neurologic: normal inspection, alert, responsive, speech normal Psychiatric: normal inspection, judgement/insight normal, mood/affect normal Medical Decision Making Diagnostic Impression: Primary Impression: Chest pain Additional Impression: Headache ER Course Patient presents emergency department today complaint headache and chest pain. Differential considerations include migraine headache, anxiety, acute coronary syndrome, intracranial injury just name few. Given the severity of the patient' s presentation I felt this is a highly complex patient. This patient required extensive workup. Laboratory work-up showed negative hCG. Patient's head CT was obtained because this was a complex patient with prior abnormal MRI in the past. Therefore this is not patient's typical headache. This is very atypical and concern for intracranial injury. Therefore a head CT was performed. Head CT was noted to be negative. Patient was treated with pain medications felt much better. Therefore I feel the patient be discharged home. Patient is advised to follow up with primary doctor in 2-3 days and return the emergency room for any worsening symptoms and as needed. Labs Test 10/16/18 11:08 Urine HCG, Qualitative Negative (NEGATIVE) EKG Diagnostic Results Rate: normal Rhythm: NSR ST Segments: no acute changes Rhythm Strip Diag. Results EP Interpretation: yes Rate: 68 Rhythm: NSR, no PVC's, no ectopy CT/MRI/US Diagnostic Results CT/MRI/US Diagnostic Results : Imaging Test Ordered: Head CT: Negative Last Vital Signs Date Time Temp Pulse Resp B/P (MAP) Pulse Ox O2 Delivery O2 Flow Rate FiO2 10/16/18 12:23 98.3 74 14 156/98 100 Room Air Disposition: HOME, SELF-CARE Condition: Stable Scripts Ibuprofen* (MOTRIN*) 600 Mg Tablet 600 MG ORAL Q8H PRN for For Pain, #30 TAB 0 Refills Prov: Kapil Rosas MD 10/16/18 Hydrocodone Bit/Acetaminophen 5-325* (NORCO 5-325*) 1 Each Tablet 1 TAB ORAL Q6H PRN for For Pain, #10 TAB 0 Refills Prov: Kapil Rosas MD 10/16/18 Metoprolol Succinate* (METOPROLOL SUCCINATE*) 100 Mg Tab.er.24h 100 MG ORAL DAILY for 30 Days, TAB Prov: Kapil Rosas MD 10/16/18 Referrals: NOT CHOSEN IPA/,REFERRING (PCP) Patient Instructions: Nonspecific Chest Pain Kapil Rosas MD Oct 16, 2018 16:08
--- NOTE | 2018-10-17 09:44 | Diagnostic Imaging Report ---
Indication: Chest pain Technique: One view of the chest Comparison: 12/22/2011 Findings: Lungs and pleural spaces are clear. Heart size is normal. No significant interim change Impression: No acute process This agrees with the preliminary interpretation provided by the emergency room physician
== END 2018-10-16 12:24 | disposition home or self-care (01) ==
LOC: EMR 11:14
DX: R07.9 Chest pain, unspecified (principal); I10 Essential (primary) hypertension; I11.9 Hypertensive heart disease without heart failure; I25.10 Atherosclerotic heart disease of native coronary artery without angina pectoris
CPT/HCPCS: 70450; 71045; 81025; 96361; 96374; 96375; 99284; J1200; J1885; J2405; J2765

== ENCOUNTER 2019-02-09 20:32 | Emergency (ER) | payer MEDICAID ==
[~2019-02-09] VITALS: Ht 160 cm; Wt 74.8 kg
[~2019-02-09 20:32] MED LIST changes: +METOPROLOL SUC100 MG ORAL
[2019-02-09 20:55] VITALS: BP 150/101
--- NOTE | 2019-02-09 20:55 | NUR ---
ED Nurse Note: Patient walked in to ER c/o left lower abd pain 12/18. AAOx 4, VSS at this time, Blood and urine were collected sent down.
--- NOTE | 2019-02-09 21:04 | Emergency Room Report ---
History of Present Illness General Chief Complaint: Abdominal Pain Source: Patient Present Illness HPI This is a 33-year-old female well-known to this ER. She has a history of hypertension. She presents with chief complaint of left lower quadrant abdominal pain. Onset in the last 1 to 2 hours. Pain is sharp. Worse with movement. Better with rest. Pain is 8 out of 10. No nausea no vomiting. No fever chills. No urinary complaint. Denies any other symptoms. Allergies: Coded Allergies: No Known Allergies (Unverified , 12/22/11) Patient History Past Medical History: see triage record, old chart reviewed, HTN Past Surgical History: other Pertinent Family History: none Social History: Denies: smoking Last Menstrual Period: January 28, 2019 Now: No : 3 Para: 3 Immunizations: other Reviewed Nursing Documentation: PMH: Agreed; PSxH: Agreed Nursing Documentation-PMH Hx Cardiac Problems: Yes Hx Hypertension: Yes Hx Pacemaker: No Hx Asthma: No Hx COPD: No Hx Diabetes: No Hx Cancer: No Hx Gastrointestinal Problems: No Hx Dialysis: No Hx Neurological Problems: No Hx Cerebrovascular Accident: No Hx Seizures: No Review of Systems Eye: Denies: eye pain, blurred vision ENT: Denies: ear pain, nose congestion, throat swelling Respiratory: Denies: cough, shortness of breath Cardiovascular: Denies: chest pain, palpitations Gastrointestinal: Reports: abdominal pain; Denies: diarrhea, nausea, vomiting Musculoskeletal: Denies: back pain, joint pain Skin: Denies: rash Neurological: Denies: headache, numbness Endocrine: Denies: increased thirst, increased urine Hematologic/Lymphatic: Denies: easy bruising All Other Systems: negative except mentioned in HPI Physical Exam Vital Signs Date Time Temp Pulse Resp B/P (MAP) Pulse Ox O2 Delivery O2 Flow Rate FiO2 02/09/19 20:40 98.4 85 16 150/101 (117) 97 Room Air Vitals with high blood pressure Sp02 EP Interpretation: reviewed, normal General Appearance: well appearing, no apparent distress, alert Head: normocephalic, atraumatic Eyes: bilateral eye PERRL, bilateral eye EOMI ENT: hearing grossly normal, normal pharynx Neck: full range of motion, supple, no meningismus Respiratory: chest non-tender, lungs clear, normal breath sounds Cardiovascular #1: regular rate, rhythm, no murmur Gastrointestinal: non tender, no mass, no organomegaly, no bruit, non-distended , tenderness - Left Lower quadrant tenderness Musculoskeletal: back normal, gait/station normal, normal range of motion Psychiatric: mood/affect normal Medical Decision Making Diagnostic Impression: Primary Impression: Abdominal pain Qualified Codes: R10.32 - Left lower quadrant pain ER Course She presents with abdominal pain. No evidence of any infection or kidney stone. No evidence of UTI. No obstruction. On the computer programmer film, she looks to be constipated. Will discharge home. CT/MRI/US Diagnostic Results CT/MRI/US Diagnostic Results : Imaging Test Ordered: CT abdomen pelvis Impression Negative per radiologist Last Vital Signs Date Time Temp Pulse Resp B/P (MAP) Pulse Ox O2 Delivery O2 Flow Rate FiO2 02/09/19 20:40 98.4 85 16 150/101 (117) 97 Room Air Status: improved Disposition: HOME, SELF-CARE Condition: Stable Scripts Lactulose (LACTULOSE*) 20 Gm/30 Ml Solution 30 ML ORAL DAILY, #120 ML 0 Refills Prov: Juan Bryant MD 02/09/19 Ibuprofen* (MOTRIN*) 600 Mg Tablet 600 MG ORAL THREE TIMES A DAY, #30 TAB 0 Refills Prov: Juan Bryant MD 02/09/19 Patient Instructions: Abdominal Pain, Adult Additional Instructions: Follow up with your doctor in 7 days. Return if symptoms worsen. Juan Bryant MD Feb 09, 2019 21:04
[2019-02-09] MEDS ORDERED: Ketorolac 30mg Inj IV ONE (21:15)
[2019-02-09 21:22] LABS: APPEARANCE,URINE CLEAR; BASOPHILS % (AUTO) 0.9 % (0.0-2.0); BILIRUBIN, URINE NEGATIVE (NEGATIVE); COLOR,URINE PALE YELLOW; EOSINOPHILS % (AUTO) 2.7 % (0.0-3.0); GLUCOSE, URINE (UA) NEGATIVE (NEGATIVE); HEMATOCRIT 33.2 % (37.0-47.0); HEMOGLOBIN 11.6 G/DL (12.0-16.0); KETONES,URINE NEGATIVE (NEGATIVE); LEUKOCYTE ESTERASE ,URINE 1+ (NEGATIVE); LYMPHOCYTES % (AUTO) 42.6 % (20.0-45.0); MEAN CORPUSCULAR VOLUME 85 FL (80-99); MONOCYTES % (AUTO) 8.5 % (1.0-10.0); NEUTROPHILS % (AUTO) 45.2 % (45.0-75.0); NITRITE,URINE NEGATIVE (NEGATIVE); PH,URINE 6 (4.5-8.0); PLATELET COUNT 292 K/UL (150-450); PROTEIN,URINE NEGATIVE (NEGATIVE); RED BLOOD COUNT 3.89 M/UL (4.20-5.40); RED CELL DISTRIBUTION WIDTH 10.2 % (11.6-14.8); UROBILINOGEN,URINE NORMAL MG/DL (0.0-1.0); WHITE BLOOD COUNT 6.7 K/UL (4.8-10.8)
[2019-02-09 21:37] LABS: ANION GAP 7 mmol/L (5-15); BLOOD UREA NITROGEN 9 mg/dL (7-18); CALCIUM 8.6 MG/DL (8.5-10.1); CARBON DIOXIDE 27 MMOL/L (21-32); CHLORIDE 107 MMOL/L (98-107); CREATININE 0.8 MG/DL (0.55-1.30); SODIUM 141 MMOL/L (136-145)
--- NOTE | 2019-02-09 22:16 | Diagnostic Imaging Report ---
CT ABDOMEN AND PELVIS WITHOUT CONTRAST INDICATION: Abdominal pain TECHNIQUE: Continuous helical transaxial imaging of the abdomen and pelvis was obtained from the lung bases to the pubic symphysis. Coronal 2-D reformats were also obtained. Study obtained in a Siemens sensation [address] Automatic Exposure Control was utilized. Total Dose length Product (DLP): 1064.[address] Dose Index Volume (CTDIvol): 17.4 mGy COMPARISON: CT abdomen and pelvis dated 07/12/2015 FINDINGS: Lower chest:: Unremarkable. Hepatobiliary:: Status post cholecystectomy. Genitourinary:: No hydronephrosis. Intrauterine device in satisfactory position within the uterus. Right kidney is highly atrophic with cortical scarring, unchanged from prior examination. Adrenals:: Unremarkable. Pancreas:: Unremarkable. Gastrointestinal:: No evidence of obstruction. There is fecalization of the terminal ileum. Spleen: : Unremarkable. Peritoneum:: Unremarkable. Bones and soft tissues:: Unremarkable. IMPRESSION: Fecalization of the terminal ileum, a nonsepcific finding. Otherwise, no acute findings in the abdomen or pelvis. These findings are concordant with the [facility] preliminary report. The CT scanner at [facility] is accredited by the [employer] and the scans are performed using protocols designed to limit radiation exposure to as low as reasonably achievable to attain images of sufficient resolution adequate for diagnostic evaluation
[2019-02-09] MEDS ORDERED: IBUPROFEN600 MG ORAL (22:36)
[2019-02-09] MEDS ORDERED: LACTULOSE20 GM/301 ORAL (22:37)
[2019-02-09 22:48] VITALS: BP 150/101
--- NOTE | 2019-02-09 22:48 | NUR ---
ER DISCHARGE NOTE: Patient is cleared to be discharged per ERMD, pt is aox4, on room air, with stable vital signs. pt was given dc and prescription instructions, pt was able to verbalize understanding, pt id band and iv site removed without complications. pt is able to ambulate with steady gait. pt took all belongings.
== END 2019-02-09 22:49 | disposition home or self-care (01) ==
LOC: EMR 21:10
DX: R10.32 Left lower quadrant pain (principal); I10 Essential (primary) hypertension
CPT/HCPCS: 36415; 74176; 80048; 81003; 81025; 85025; 96361; 96374; J1885; Z7502; 99284; J7030

== ENCOUNTER 2019-02-16 01:23 | Emergency (ER) | payer MEDICAID ==
[~2019-02-16] VITALS: Ht 160 cm; Wt 74.8 kg
[~2019-02-16 01:23] MED LIST changes: +LACTULOSE20 GM/301 ORAL
[2019-02-16 01:39] VITALS: BP 186/120
--- NOTE | 2019-02-16 01:40 | NUR ---
ED Nurse Note: pt walked in to ED for C/O pain to abdomen. pt states she had 2 positive self test at home but is having vaginal bleeding. pt is alert x4.
--- NOTE | 2019-02-16 01:55 | Emergency Room Report ---
History of Present Illness General Chief Complaint: Abdominal Pain Source: Patient Present Illness HPI Disclaimer: Please note that this report is being documented using [employer] technology. This can lead to erroneous entry secondary to incorrect interpretation by the dictating instrument. HPI: 33-year-old otherwise healthy female presents for evaluation of abdominal pain and vaginal bleeding. Symptoms have been intermittent over the past few weeks. She was seen in the emergency department 1 week ago complaining of lower pelvic pain. Labs and CT imaging at that time were unremarkable and hCG was negative. She states she has had intermittent abdominal cramping despite treatment for constipation at home and has been having normal bowel movements. This morning she began to experience worsening abdominal cramping and noted some vaginal bleeding as well as hematuria. Denies dysuria or flank pain. Denies fevers or vomiting. She took 2 home tests which were reportedly positive. LMP was 12/30. Denies vaginal discharge. Patient has been 4 times and had one treated surgically for ectopic . This was her last . PMH: Gestational diabetes, hypertension PSH: Laparoscopy for ectopic Allergies: Denies Social Hx: Denies Allergies: Coded Allergies: No Known Allergies (Unverified , 12/22/11) Patient History Now: Yes Nursing Documentation-PMH Past Medical History: No Stated History Hx Cardiac Problems: Yes Hx Hypertension: Yes Hx Pacemaker: No Hx Asthma: No Hx COPD: No Hx Diabetes: No Hx Cancer: No Hx Gastrointestinal Problems: No Hx Dialysis: No Hx Neurological Problems: No Hx Cerebrovascular Accident: No Hx Seizures: No Review of Systems All Other Systems: negative except mentioned in HPI Physical Exam Vital Signs Date Time Temp Pulse Resp B/P (MAP) Pulse Ox O2 Delivery O2 Flow Rate FiO2 02/16/19 01:34 98.2 94 22 173/134 (147) 97 Room Air General: Awake and alert, appears uncomfortable and in pain HEENT: NC/AT. EOMI. Cardiovascular: RRR. S1 and S2 normal. No murmur appreciated Resp: Mild tachypnea. Normal work of breathing. No cough, wheezing or crackles appreciated Abdomen: Abdomen is soft, nondistended. Tender to palpation in the epigastrium , suprapelvic regions and lower quadrants bilaterally without rebound or mass. Skin: Intact. No abrasions, laceration or rash over the exposed skin MSK: Normal tone and bulk. Moving all extremities. No obvious deformity. Neuro: Awake and alert. Mentating appropriately. Medical Decision Making Diagnostic Impression: Primary Impression: UTI (urinary tract infection) ER Course 33-year-old female presents for evaluation of abdominal pain and vaginal bleeding with reported 2+ tests at home and history of ectopic requiring laparoscopy for excision. Will obtain labs including hCG quant though urine screen for hCG on last admission was -1-week ago. LMP was . Will obtain blood work and a pelvic ultrasound. Laboratory Tests Test 02/16/19 01:55 White Blood Count 7.8 K/UL (4.8-10.8) Red Blood Count 4.85 M/UL (4.20-5.40) Hemoglobin 14.4 G/DL (12.0-16.0) Hematocrit 41.2 % (37.0-47.0) Mean Corpuscular Volume 85 FL (80-99) Mean Corpuscular Hemoglobin 29.8 PG (27.0-31.0) Mean Corpuscular Hemoglobin Concent 35.0 G/DL (32.0-36.0) Red Cell Distribution Width 11.1 % (11.6-14.8) L Platelet Count 427 K/UL (150-450) Mean Platelet Volume 5.3 FL (6.5-10.1) L Neutrophils (%) (Auto) 61.0 % (45.0-75.0) Lymphocytes (%) (Auto) 31.3 % (20.0-45.0) Monocytes (%) (Auto) 6.0 % (1.0-10.0) Eosinophils (%) (Auto) 0.8 % (0.0-3.0) Basophils (%) (Auto) 1.0 % (0.0-2.0) Urine Color [place] Urine Appearance Slightly cloudy Urine pH 5 (4.5-8.0) Urine Specific [place] 1.025 (1.005-1.035) Urine Protein 3+ (NEGATIVE) H Urine Glucose (UA) Negative (NEGATIVE) Urine Ketones 1+ (NEGATIVE) H Urine Blood 5+ (NEGATIVE) H Urine Nitrite Negative (NEGATIVE) Urine Bilirubin Negative (NEGATIVE) Urine Urobilinogen 1 MG/DL (0.0-1.0) H Urine Leukocyte Esterase 3+ (NEGATIVE) H Urine RBC Tntc /HPF (0 - 2) H Urine WBC 5-10 /HPF (0 - 2) H Urine Squamous Epithelial Cells Moderate /LPF (NONE/OCC) H Urine Bacteria Few /HPF (NONE) Sodium Level 140 MMOL/L (136-145) Potassium Level 3.1 MMOL/L (3.5-5.1) L Chloride Level 102 MMOL/L (98-107) Carbon Dioxide Level 29 MMOL/L (21-32) Anion Gap 10 mmol/L (5-15) Blood Urea Nitrogen 16 mg/dL (7-18) Creatinine 0.8 MG/DL (0.55-1.30) Estimate Glomerular Filtration Rate > 60 mL/min (>60) Glucose Level 121 MG/DL (74-106) H Calcium Level 9.1 MG/DL (8.5-10.1) Total Bilirubin 0.5 MG/DL (0.2-1.0) Aspartate Amino Transferase (AST) 15 U/L (15-37) Alanine Aminotransferase (ALT) 35 U/L (12-78) Alkaline Phosphatase 60 U/L (46-116) Total Protein 8.5 G/DL (6.4-8.2) H Albumin 4.4 G/DL (3.4-5.0) Globulin 4.1 g/dL Albumin/Globulin Ratio 1.1 (1.0-2.7) Lipase 126 U/L (73-393) Human Chorionic Gonadotropin, Quant < 1 mIU/mL (1-6) L Reevaluation Time: 03:58 Last Vital Signs Date Time Temp Pulse Resp B/P (MAP) Pulse Ox O2 Delivery O2 Flow Rate FiO2 02/16/19 01:34 98.2 94 22 173/134 (147) 97 Room Air Reevaluation Impression Left show normal white count, no anemia, normal renal function and a negative hCG quantitative reading. Urinalysis consistent with acute urinary tract infection. Pelvic ultrasound shows an intrauterine device but no evidence of intrauterine, ectopic , abscess, free fluid or other pathology. Likely , the blood in the patient's urine may have triggered a false positive reading on her home test. She will follow-up with [facility] for retesting in a few days and return to the emergency department any new or worsening symptoms. She will be discharged with 10 days of Keflex for treatment of urinary tract infection. Discussed reasons to return to the emergency department. She understands and agrees with this treatment plan. Disposition: HOME, SELF-CARE Condition: Stable Scripts Metoprolol Succinate* (METOPROLOL SUCCINATE*) 100 Mg Tab.er.24h 100 MG ORAL DAILY for 30 Days, TAB Prov: Otoniel Elizondo MD 02/16/19 Cephalexin* (KEFLEX*) 500 Mg Capsule 500 MG ORAL EVERY 12 HOURS for 10 Days, #20 CAP 0 Refills Prov: Otoniel Elizondo MD 02/16/19 Otoniel Elizondo MD Feb 16, 2019 01:55
--- NOTE | 2019-02-16 02:00 | NUR ---
ED Nurse Note: blood and urine sample sent down to lab
[2019-02-16 02:05] LABS: EOSINOPHILS % (AUTO) 0.8 % (0.0-3.0); HEMATOCRIT 41.2 % (37.0-47.0); HEMOGLOBIN 14.4 G/DL (12.0-16.0); LYMPHOCYTES % (AUTO) 31.3 % (20.0-45.0); MEAN CORPUSCULAR VOLUME 85 FL (80-99); PLATELET COUNT 427 K/UL (150-450); RED BLOOD COUNT 4.85 M/UL (4.20-5.40); RED CELL DISTRIBUTION WIDTH 11.1 % (11.6-14.8); WHITE BLOOD COUNT 7.8 K/UL (4.8-10.8)
[2019-02-16 02:13] LABS: APPEARANCE,URINE SLIGHTLY CLOUDY; BILIRUBIN, URINE NEGATIVE (NEGATIVE); COLOR,URINE ORANGE; GLUCOSE, URINE (UA) NEGATIVE (NEGATIVE); KETONES,URINE 1+ (NEGATIVE); LEUKOCYTE ESTERASE ,URINE 3+ (NEGATIVE); NITRITE,URINE NEGATIVE (NEGATIVE); PH,URINE 5 (4.5-8.0); PROTEIN,URINE 3+ (NEGATIVE); UROBILINOGEN,URINE 1 MG/DL (0.0-1.0)
[2019-02-16 02:17] LABS: ANION GAP 10 mmol/L (5-15); BLOOD UREA NITROGEN 16 mg/dL (7-18); CALCIUM 9.1 MG/DL (8.5-10.1); CARBON DIOXIDE 29 MMOL/L (21-32); CHLORIDE 102 MMOL/L (98-107); CREATININE 0.8 MG/DL (0.55-1.30); POTASSIUM 3.1 MMOL/L (3.5-5.1); SODIUM 140 MMOL/L (136-145)
[2019-02-16 02:24] LABS: ALANINE AMINOTRANSFERASE 35 U/L (12-78); ALBUMIN 4.4 G/DL (3.4-5.0); ALBUMIN/GLOBULIN RATIO 1.1 (1.0-2.7); ALKALINE PHOSPHATASE 60 U/L (46-116); ASPARTATE AMINO TRANSFERASE 15 U/L (15-37); BILIRUBIN,TOTAL 0.5 MG/DL (0.2-1.0)
--- NOTE | 2019-02-16 03:16 | NUR ---
ED Nurse Note: ultrasound at bedside
[2019-02-16] MEDS ORDERED: CEPHALEXIN500 MG ORAL (03:58)
[2019-02-16] MEDS ORDERED: METOPROLOL SUC100 MG ORAL (04:05)
[2019-02-16 04:12] VITALS: BP 178/98
== END 2019-02-16 04:12 | disposition home or self-care (01) ==
LOC: EMR 01:55
DX: N39.0 Urinary tract infection, site not specified (principal); N93.9 Abnormal uterine and vaginal bleeding, unspecified; R10.2 Pelvic and perineal pain; I10 Essential (primary) hypertension; Z97.5 Presence of (intrauterine) contraceptive device
CPT/HCPCS: 36415; 76830; 76856; 80053; 81003; 83690; 84702; 85025; 86850; 86900; 86901; Z7502; 99284

== ENCOUNTER 2019-03-31 10:33 | Emergency (ER) | payer MEDICAID ==
[~2019-03-31] VITALS: Ht 160 cm; Wt 72.6 kg
[2019-03-31] MEDS ORDERED: [UNRECOGNIZED DRUG - REMARK] ORAL (10:46)
--- NOTE | 2019-03-31 10:51 | NUR ---
ED Nurse Note: patient ambulated into ER with a c/o fever and headache x 4 days. Patient is aaox4, on room air with stable vital signs. Patient c/o pain score of 10/10. patient states the left side of her face hurt, face is symmetrical and no facial drooping noted.
[2019-03-31 10:54] VITALS: BP 137/89
--- NOTE | 2019-03-31 11:05 | NUR ---
ED Nurse Note: Patient is sleeping in bed comfortably.
--- NOTE | 2019-03-31 11:28 | Emergency Room Report ---
History of Present Illness General Chief Complaint: Flu Like Symptoms Source: Patient Present Illness HPI 33-year-old female with history of hypertension who presents to emergency room with throat pain, fevers, and left ear pain. Patient reported symptoms started yesterday and worsened today at morning time. She reported T-max of 104.1. She took 800 mg ibuprofen at 5 AM. She denies any nausea or vomiting. She denies any dental injury or pain. She denies any difficulty breathing. She notes mild cough. Nonproductive. Allergies: Coded Allergies: No Known Allergies (Unverified , 12/22/11) Patient History Last Menstrual Period: 02/22/2019 Nursing Documentation-[facility] Past Medical History: No History, Except For Hx Cardiac Problems: No Hx Hypertension: Yes Hx Pacemaker: No Hx Asthma: No Hx COPD: No Hx Diabetes: No Hx Cancer: No Hx Gastrointestinal Problems: No Hx Dialysis: No History Of Psychiatric Problem: No Hx Neurological Problems: No Hx Cerebrovascular Accident: No Hx Seizures: No Review of Systems Constitutional: Reports: fever; Denies: chills ENT: Reports: ear pain, throat pain Respiratory: Reports: cough; Denies: shortness of breath Cardiovascular: Denies: chest pain, palpitations Gastrointestinal: Denies: diarrhea, vomiting Genitourinary: Denies: hematuria, pain Musculoskeletal: Denies: joint swelling Skin: Denies: rash, lesions Neurological: Denies: headache, dizziness Physical Exam Vital Signs Date Time Temp Pulse Resp B/P (MAP) Pulse Ox O2 Delivery O2 Flow Rate FiO2 03/31/19 10:41 97.3 89 19 137/89 (105) 97 Room Air Sp02 EP Interpretation: reviewed General Appearance: well appearing, no apparent distress, non-toxic Head: normocephalic, atraumatic Eyes: bilateral eye normal inspection ENT: normal ENT inspection, hearing grossly normal, EOM grossly intact, no angioedema, normal voice, uvula midline, moist mucus membranes, pharyngeal erythema - Mild pharyngeal erythema, other - Left tympanic membrane dull, unable to visualize bones, edema over left inferior face Neck: supple Respiratory: lungs clear, normal breath sounds, no rhonchi, no respiratory distress, no retraction, no accessory muscle use, no wheezing, speaking full sentences Cardiovascular #1: regular rate, rhythm, no edema, no gallop, normal capillary refill Cardiovascular #2: 2+ radial (R), 2+ radial (L) Gastrointestinal: soft, non-distended Rectal: deferred Musculoskeletal: moves extm spontaneously, no lower extremity edema Neurologic: alert, grossly normal Psychiatric: mood/affect normal Skin: warm/dry, normal turgor Lymphatic: adenopathy - Lymphadenopathy over left submandibular Medical Decision Making Diagnostic Impression: Primary Impression: otitis media Additional Impressions: Fever Sore throat Last Vital Signs Date Time Temp Pulse Resp B/P (MAP) Pulse Ox O2 Delivery O2 Flow Rate FiO2 03/31/19 10:54 97.3 89 19 137/89 97 Room Air Disposition: HOME, SELF-CARE Condition: Stable Scripts Amoxicillin* (AMOXIL*) 500 Mg Capsule 500 MG ORAL THREE TIMES A DAY for 10 Days, #30 CAP Prov: Joey Chang M.D. 03/31/19 Referrals: NOT CHOSEN [facility]/,REFERRING (PCP) [place] Patient Instructions: Fever, Adult, Otitis Media, Adult, Upper Respiratory Infection, Adult Additional Instructions: Please follow-up with primary care doctor in 2 to 3 days for reevaluation. Return to emergency room if unable to tolerate food, liquids or any new symptoms arise. Joey Chang M.D. Mar 31, 2019 11:28
[2019-03-31] MEDS ORDERED: AMOXICILLIN500 MG ORAL (11:47)
[2019-03-31 11:52] VITALS: BP 137/89
--- NOTE | 2019-03-31 11:52 | NUR ---
ED Nurse Note: Pt cleared by Dr. Chang for discharge. DC instructions/prescription was given and explained to pt and verbalized understanding of teachings. All medical deviecs such as ID band removed. Pt is AAO x4, ambulatory and left with all personal belongings.
== END 2019-03-31 11:52 | disposition home or self-care (01) ==
LOC: EMR 11:14
DX: H66.92 Otitis media, unspecified, left ear (principal); R50.9 Fever, unspecified; R07.0 Pain in throat; I10 Essential (primary) hypertension
CPT/HCPCS: 99282